=== PATIENT | male | born 1995 | race Caucasian/White ===

== ENCOUNTER → 2023-10-08 | Outpatient (CLI) | payer OTHER | LOC: LAB 17:51 → LAB SHORT 17:51 | DX: B35.3 Tinea pedis (principal) | CPT/HCPCS: 87220 ==

== ENCOUNTER → 2023-10-09 | Outpatient (CLI) | payer OTHER | LOC: LAB SHORT 08:16 → LAB 08:16 | DX: L60.2 Onychogryphosis (principal); B35.1 Tinea unguium | CPT/HCPCS: 88305; 88312 ==